=== PATIENT | female | born 1985 | race Caucasian/White ===

== ENCOUNTER 2018-06-16 14:53 | Emergency (ER) | payer OTHER ==
[2018-06-16 15:41] VITALS: BP 133/71
[2018-06-16] MEDS ORDERED: Fluorescein Sod TOPICAL 0.6* 0.6 MG TEST OPHTHALMIC ONE (16:30)
[2018-06-16] MEDS ORDERED: Eye Irrigation Solution 30 ML BOTTLE RIGHT EYE ONE (16:30)
[2018-06-16] MEDS ORDERED: Tetracaine 0.5% OPTH.SOL 4 ML* 1 DROP BTL RIGHT EYE ONE (16:30)
--- NOTE | 2018-06-16 16:31 | UC ---
Eye Complaint HPI - HPI Summary HPI Summary: 32 y/o female presents to the urgent care c/o left eye pain w/ a FB for the past week. She has irrigated her left eye multiple times and it gets better for few hrs and then FB sensation returns. Pt works in a [employer] and she thinks probably flour got into her eye. this morning she woke up w/ yellowish crusting eye discharge and her eye is red. she feels a burning sensation, Pain is 3/10 and photophobia. Pt denies dizziness, visual impairment, SOB, chest pain, abdominal pain, N/v/D. - History of Current Complaint Chief Complaint: UCEye Stated Complaint: EYE COMPLAINT Time Seen by Provider: 06/16/18 16:28 Hx Obtained From: Patient Hx Last Menstrual Period: [id number] ?: No Onset/Duration: Sudden Onset, Lasting Weeks - 1 week, Still Present, Worse Since - yesterday Timing: Constant Severity Initially: Mild Severity Currently: Moderate Pain Intensity: 3 Pain Scale Used: 0-10 Numeric Location of Injury: Conjunctiva - left conjunctiva red w/ yellowish drainage Character: Foreign Body Sensation Aggravating Factor(s): Light Alleviating Factor(s): Other - eye closed Associated Signs And Symptoms: Positive: Photophobia, Drainage (Purulent) - yellowish. Negative: Vision Impairment Bilateral, Fever, Swelling - Risk Factors Penetrating Injury Risk Factor: Negative Globe Rupture Risk Factors: Negative Acute Glaucoma Risk Factors: Negative Optic Artery Occlusion Risk Factors: Negative - Allergies/Home Medications Allergies/Adverse Reactions: Allergies Allergy/AdvReac Type Severity Reaction Status Date / Time Egg Derived Allergy Severe Hives Verified 06/16/18 15:42 PMH/Surg Hx/FS Hx/Imm Hx Previously Healthy: Yes - Pt denies PMHX - Surgical History Surgical History: Yes Surgery Procedure, Year, and Place: Right Ring finger joint replacement x2, C- section 2009 - Family History Known Family History: Positive: Hypertension, Diabetes - Social History Occupation: Employed Full-time Lives: With Family Alcohol Use: Occasionally Substance Use Type: None Smoking Status (MU): Light Every Day Tobacco Smoker Review of Systems Constitutional: Negative Skin: Negative Eyes: Drainage - yellowish this morning, Eye Redness - left eye FB w/ redness, Photophobia ENT: Negative Respiratory: Negative Cardiovascular: Negative Gastrointestinal: Negative Genitourinary: Negative Motor: Negative Neurovascular: Negative Musculoskeletal: Negative Neurological: Headache - mild Psychological: Negative Is Patient Immunocompromised?: No All Other Systems Reviewed And Are Negative: Yes Physical Exam - Summary Physical Exam Summary: Vital Signs Reviewed: Yes General: Well appearing, well nourished female in no apparent pain distress Eyes: Positive: Left Conjunctiva Inflamed - Visual acuity: WNL,Visual valentine: full to confrontation. PERRLA, EOMI intact w/out limitation or complaint of pain. eyelashes clear. mild tearing and yellowish drainage observed. No ciliary flush. No chemosis, No photophobia. Normal fundoscopic exam; no proptosis, exophthalmos, nystagmus. There are no hemorrhages or exudates. Visual acuity is 20/20 bilaterally. No foreign body under eyelids observed with naked eye. ENT: Positive: Normal ENT inspection, Hearing grossly normal, Pharynx normal, Nasal congestion, Nasal drainage - clear, TMs normal - B/L external ear canal clear , TM's WNL. Negative: Tonsillar swelling, Tonsillar exudate Neck: Positive: Supple, Nontender, No Lymphadenopathy Respiratory: Positive: Chest nontender, Lungs clear, Normal breath sounds, No respiratory distress Cardiovascular: Positive: RRR, No Murmur, Pulses Normal, Brisk Capillary Refill Abdomen Description: Positive: Nontender, No Organomegaly, Soft. Negative: CVA Tenderness (R), CVA Tenderness (L) Bowel Sounds: Positive: Present Musculoskeletal: Positive: Strength Intact, ROM Intact, No Edema Neurological Exam: Normal Psychological Exam: Normal Skin Exam: Normal Triage Information Reviewed: Yes Vital Signs: Initial Vital Signs Temp 98.8 F 06/16/18 15:36 Pulse 80 06/16/18 15:36 Resp 16 06/16/18 15:36 BP 133/71 06/16/18 15:36 Pulse Ox 100 06/16/18 15:36 Eye Complaint Course/Dx - Course Course Of Treatment: 32 y/o female presents to the urgent care c/o left eye pain w/ a FB for the past week. She has irrigated her left eye multiple times and it gets better for few hrs and then FB sensation returns. Pt works in a [employer] and she thinks probably flour got into her eye. this morning she woke up w/ yellowish crusting eye discharge and her eye is red. she feels a burning sensation, Pain is 3/10 and photophobia. Pt denies dizziness, visual impairment , SOB, chest pain, abdominal pain, N/v/D.Hx obtained. RT eye with conjunctiva clear, sclera is white. LF eye with inflamed conjunctiva and clear eye discharge. B/L PERRLA, EOMI w/o any nystagmus or strabismus. Fundi appears benign. Disks are well delineated. There are no hemorrhages or exudates. Visual acuity is 20/20 bilaterally, and visual valentine are within normal limits. No foreign body under eyelids observed with naked eye. 2 drops of Tetracaine optha drops placed on Pts left eye, then irrigated with saline drops to flush any foreign particles, a transparent fiber observed w/ magnifying glasses and removed from cornea. then fluorescein instillation and examination with UV lamp. Positive corneal abrasion observed at 5-8 oclock. After procedure Pt felt better. Pt's eye patch for 1 day for comfort. Pt Rx Erythromycin ophthalmic ointment and advised to f/u at [facility] [place] as soon as possible. D/c instructions explained. Pt understood and agreed w/ plan of care.. - Differential Dx/Diagnosis Differential Diagnosis/HQI/PQRI: Conjunctivitis, Corneal Abrasion, Foreign Body , Penetrating Injury, Periorbital Cellulitis, Uveitis, Other - corneal ulcer Provider Diagnoses: 1- Left eye foreing body removal. 2- Left eye corneal abrasion Discharge - Sign-Out/Discharge Documenting (check all that apply): Patient Departure - D/C home All imaging exams completed and their final reports reviewed: No Studies - Discharge Plan Condition: Stable Disposition: HOME Prescriptions: Erythromycin OPTH OINT* [Erythromycin 0.5% OPTH OINT*] 1 applic LEFT EYE TID #1 ophth.oint Patient Education Materials: Corneal Abrasion (DC) Referrals: Bi Brown MD [Primary Care Provider] - 2 Days Temo Garcia MD [Medical Doctor] - 1 Day Additional Instructions: 1-Please apply ophthalmic ointment in your LF eye as directed. Please take Ibuprofen PO q6-8hrs for your headache. 2- You have a Corneal Abrasion in your left eye. Please f/u w/ Ophtalmologist Dr Garcia as soon as possible for further evaluation and treatment. - Billing Disposition and Condition Condition: STABLE Disposition: Home
== END 2018-06-16 17:30 | disposition home or self-care (01) ==
LOC: UCEAST 14:53
DX: T15.02XA Foreign body in cornea, left eye, initial encounter (principal); X58.XXXA Exposure to other specified factors, initial encounter; Y93.9 Activity, unspecified; Y92.9 Unspecified place or not applicable; Z96.691 Finger-joint replacement of right hand; Z91.012 Allergy to eggs; F17.200 Nicotine dependence, unspecified, uncomplicated
CPT/HCPCS: 65205; 99212; A9270-GY; G0463

== ENCOUNTER 2018-12-29 12:31 | Emergency (ER) | payer OTHER ==
[2018-12-29 13:59] VITALS: BP 122/59
[2018-12-29 14:29] LABS: Influenza A Molecular NEGATIVE (Negative); Influenza B Molecular NEGATIVE (Negative)
--- NOTE | 2018-12-29 14:46 | UC ---
Ear Complaint HPI - HPI Summary HPI Summary: Patient has had right ear fullness, cough SOB and other URI symptoms for the past few days 1 day of fever. - History of Current Complaint Chief Complaint: UCRespiratory Stated Complaint: COUGH,FEVER,BOYD Time Seen by Provider: 12/29/18 14:12 Hx Obtained From: Patient Hx Last Menstrual Period: 12/07/18 ?: No Onset/Duration: Sudden Onset, Lasting Days Severity Initially: Mild Severity Currently: Mild Pain Intensity: 0 - Allergies/Home Medications Allergies/Adverse Reactions: Allergies Allergy/AdvReac Type Severity Reaction Status Date / Time Egg Derived Allergy Severe Hives Verified 12/29/18 13:53 PMH/Surg Hx/FS Hx/Imm Hx Previously Healthy: Yes - Surgical History Surgical History: Yes Surgery Procedure, Year, and Place: Right Ring finger joint replacement x2, C- section 2008 - Family History Known Family History: Positive: Hypertension, Diabetes - Social History Alcohol Use: Occasionally Substance Use Type: None Smoking Status (MU): Light Every Day Tobacco Smoker Type: Cigarettes Amount Used/How Often: 2 cigarettes daily Have You Smoked in the Last Year: Yes Review of Systems All Other Systems Reviewed And Are Negative: Yes Constitutional: Positive: Fever, Fatigue Skin: Positive: Negative Eyes: Positive: Negative ENT: Positive: Sore Throat, Ear Ache, Nasal Discharge, Sinus Congestion Respiratory: Positive: Shortness Of Breath, Cough Cardiovascular: Positive: Negative Gastrointestinal: Positive: Negative Genitourinary: Positive: Negative Motor: Positive: Negative Neurovascular: Positive: Negative Musculoskeletal: Positive: Negative Neurological: Positive: Headache Psychological: Positive: Negative Is Patient Immunocompromised?: No Physical Exam Triage Information Reviewed: Yes Appearance: Well-Nourished, Ill-Appearing, Pain Distress Vital Signs: Initial Vital Signs Temp 98.5 F 12/29/18 13:53 Pulse 93 12/29/18 13:53 Resp 20 12/29/18 13:53 BP 122/59 12/29/18 13:53 Pulse Ox 99 12/29/18 13:53 Vital Signs Reviewed: Yes Eye Exam: Normal ENT: Positive: Pharyngeal erythema, TM bulging - left ear, Other - right cerumen impaction Dental Exam: Normal Neck exam: Normal Neck: Positive: Supple, Nontender, No Lymphadenopathy Respiratory Exam: Normal Respiratory: Positive: Chest non-tender, No respiratory distress, No accessory muscle use, Wheezing, Inspiration Cardiovascular Exam: Normal Cardiovascular: Positive: RRR, No Murmur, Pulses Normal Abdominal Exam: Normal Bowel Sounds: Positive: Present Musculoskeletal Exam: Normal Neurological Exam: Normal Psychological Exam: Normal Skin Exam: Normal Ear Complaint Course/Dx - Course Course Of Treatment: hx obtained, exam performed ,meds reviewed, right ear irriagtion performed, treaed for sinusitis and wheezing - Differential Dx/Diagnosis Differential Diagnosis/HQI/PQRI: Otitis Externa, Otitis Media, Pharyngitis, URI Provider Diagnosis: Sinusitis, Wheezing Discharge - Sign-Out/Discharge Documenting (check all that apply): Patient Departure All imaging exams completed and their final reports reviewed: No Studies - Discharge Plan Condition: Stable Disposition: HOME Patient Education Materials: Sinusitis (ED) Referrals: Bi Brown MD [Primary Care Provider] - Additional Instructions: 1. take the medication as prescribed. 2. Get plenty of fluids and plenty of rest 3. Follow up as needed. - Billing Disposition and Condition Condition: STABLE Disposition: Home
== END 2018-12-29 15:01 | disposition home or self-care (01) ==
LOC: UCCORT 12:31
DX: J32.9 Chronic sinusitis, unspecified (principal); R06.2 Wheezing; H61.22 Impacted cerumen, left ear; Z91.012 Allergy to eggs; F17.210 Nicotine dependence, cigarettes, uncomplicated
CPT/HCPCS: 99213; G0463

== ENCOUNTER 2019-06-10 14:20 | Emergency (ER) | payer OTHER ==
[2019-06-10 14:46] VITALS: BP 146/77
--- NOTE | 2019-06-10 15:03 | UC ---
[facility] HPI - HPI Summary HPI Summary: patient had L lower molar pulled 5 days ago and is taking amoxicillin. over past 2 days, she has developed pain in remaining L lower teeth and has a foul smell and taste in mouth - History of Current Complaint Chief Complaint: UCDentalProblem Stated Complaint: tooth pain Time Seen by Provider: 06/10/19 14:42 Hx Obtained From: Patient Hx Last Menstrual Period: 05/25/19 ?: No Onset/Duration: Gradual Onset Severity: Severe Pain Intensity: 7 Aggravating Factor(s): Heat, Cold, Chewing Alleviating Factor(s): Nothing Related History: Previous Dental Care on Same Tooth - Allergies/Home Medications Allergies/Adverse Reactions: Allergies Allergy/AdvReac Type Severity Reaction Status Date / Time Egg Derived Allergy Severe Hives Verified 06/10/19 14:46 Home Medications: Home Medications Ibuprofen TAB* [Advil TAB*] 400 mg PO Q6H PRN 06/10/19 [History Confirmed ] PMH/Surg Hx/FS Hx/Imm Hx Previously Healthy: Yes - Surgical History Surgical History: Yes Surgery Procedure, Year, and Place: Right Ring finger joint replacement x2, C- section 2008 - Family History Known Family History: Positive: Hypertension, Diabetes - Social History Occupation: Employed Full-time Lives: With Family Alcohol Use: Occasionally Substance Use Type: None Smoking Status (MU): Light Every Day Tobacco Smoker Type: Cigarettes Amount Used/How Often: 1 pack/week Have You Smoked in the Last Year: Yes Cessation Counseling: Patient Advised to Stop Review of Systems All Other Systems Reviewed And Are Negative: Yes Constitutional: Positive: Fever Skin: Negative: Rash ENT: Positive: Dental Pain Cardiovascular: Positive: Negative Gastrointestinal: Positive: Negative Neurological: Positive: Negative. Negative: Headache Psychological: Positive: Negative Is Patient Immunocompromised?: No Physical Exam Triage Information Reviewed: Yes Appearance: Well-Appearing, No Pain Distress, Well-Nourished Vital Signs: Initial Vital Signs Temp 99.9 F 06/10/19 14:40 Pulse 88 06/10/19 14:40 Resp 16 06/10/19 14:40 BP 146/77 06/10/19 14:40 Pulse Ox 100 06/10/19 14:40 Vital Signs Reviewed: Yes ENT: Positive: Dental tenderness - gum along L lower molar line Dental: Positive: Other: - no drainage. Negative: Bleeding Neck exam: Normal Neck: Positive: No Lymphadenopathy Respiratory Exam: Normal Respiratory: Positive: Lungs clear Cardiovascular Exam: Normal Cardiovascular: Positive: RRR Psychological Exam: Normal Skin Exam: Normal Dental Complaint Course/Dx - Differential Dx/Diagnosis Differential Diagnosis/Dx: Dental Abscess, Gingivitis Provider Diagnosis: Pain, dental, Dental abscess Discharge - Sign-Out/Discharge Documenting (check all that apply): Patient Departure All imaging exams completed and their final reports reviewed: No Studies - Discharge Plan Condition: Good Disposition: HOME Prescriptions: Clindamycin HCl 150 mg PO QID #28 capsule Fluconazole [Diflucan 150 MG (NF)] 150 mg PO ONCE #1 tab Patient Education Materials: Dental Abscess (ED) Referrals: Bi Brown MD [Primary Care Provider] - Additional Instructions: STOP amoxicillin and START clindamycin antibiotic rinse mouth with warm water after eating Tylenol as directed for pain follow-up with [facility] Ch[facility] as planned - Billing Disposition and Condition Condition: GOOD Disposition: Home
== END 2019-06-10 15:21 | disposition home or self-care (01) ==
LOC: UCEAST 14:20
DX: K04.7 Periapical abscess without sinus (principal); F17.210 Nicotine dependence, cigarettes, uncomplicated
CPT/HCPCS: 99212; G0463